=== PATIENT | female | born 1965 | race Caucasian/White ===

== ENCOUNTER → 2017-04-25 | Outpatient (CLI) | payer OTHER ==
--- NOTE | 2017-04-25 16:14 | US ---
EXAMINATION TYPE: US abdomen limited DATE OF EXAM: 04/25/2017 COMPARISON: US CLINICAL HISTORY: R94.5 abnormal liver function study. Elevated LFT's EXAM MEASUREMENTS: Liver Length: 22.8 cm Gallbladder Wall: 0.2 cm CBD: 0.4 cm Right Kidney: 11.3 x 5.3 x 5.3 cm Pancreas: Tail obscured by overlying bowel gas, duct visible= 3mm Liver: Enlarged, heterogeneous, difficult to penetrate Gallbladder: Possible small amount of sludge, otherwise appeared wnl Evidence for sonographic Merino's sign: No CBD: wnl Right Kidney: wnl IMPRESSION: 1. Exam limited due to bowel gas. 2. Moderate fatty infiltration of the liver. 3. Minimal sludge within the gallbladder
== END | disposition home or self-care (01) ==
LOC: RADUSWWP 08:00
PROVIDERS: ATTEND Family Medicine
DX: K76.0 Fatty (change of) liver, not elsewhere classified (principal); K82.8 Other specified diseases of gallbladder
CPT/HCPCS: 76705

== ENCOUNTER 2017-11-15 08:17 | Day surgery (SDC) | payer OTHER ==
[2017-10-04 12:17] VITALS: BMI 36.2
--- NOTE | 2017-11-15 05:38 | P.GSHP ---
History of Present Illness H&P Date: 11/15/17 CHIEF COMPLAINT: Cholecystitis HISTORY OF PRESENT ILLNESS: The patient is a 52-year-old female who presents with history of epigastric including right upper quadrant abdominal pain. She underwent diagnostic studies for her gallbladder. Separately her clinical picture was consistent with cholecystitis. Now she presents for surgical intervention. PAST MEDICAL HISTORY: Please see list PAST SURGICAL HISTORY: Please see list MEDICATIONS: Please see list ALLERGIES: See list. SOCIAL HISTORY: No recent tobacco use FAMILY HISTORY: Pertinent for gallbladder disease REVIEW OF ORGAN SYSTEMS: CONSTITUTIONAL: No reports of fevers or chills. HEENT: Denies any troubles with the vision or hearing. PHYSICAL EXAM: VITAL SIGNS: Afebrile vital signs stable GENERAL: Well-developed pleasant in no acute distress. HEENT: No scleral icterus. Extraocular movements grossly intact. Moist buccal mucosa. NECK: Supple without lymphadenopathy. CHEST: Unlabored respirations. Equal bilateral excursions. CARDIOVASCULAR: Regular rate regular rhythm rhythm. Distal 2+ pulses. ABDOMEN: Soft, nondistended. Tender along the epigastrium and right upper quadrant. MUSCULOSKELETAL: No clubbing, cyanosis, or edema. NEURO: Cranial nerves II to XII within normal limits. No focal or lateralizing signs. PSYCH: Alert and oriented to person, place and time. ASSESSMENT: 1. Epigastric and right upper quadrant abdominal pain 2. Chronic cholecystitis PLAN: 1. Will need a robotic cholecystectomy possible open. Benefits and risks were described. 2. Heparin for DVT prophylaxis 5000 units. 3. Antibiotic prophylaxis. Past Medical History Past Medical History: Diabetes Mellitus Additional Past Medical History / Comment(s): GALLBLADDER DISORDERS History of Any Multi-Drug Resistant Organisms: None Reported Past Surgical History: Hysterectomy Additional Past Surgical History / Comment(s): COLONOSCOPY. BILAT BREAST BIOPSIES-BENIGN Past Anesthesia/Blood Transfusion Reactions: Previous Problems w/ Anesthesia Additional Past Anesthesia/Blood Transfusion Reaction / Comment(s): WOKE UP DURING COLONOSCOPY Smoking Status: Current every day smoker - Past Family History Mother Family Medical History: No Reported History Medications and Allergies Home Medications Medication Instructions Recorded Confirmed Type Albuterol Inhaler [Ventolin Hfa 1 - 2 puff INHALATION Q6HR 10/04/17 11/12/17 History Inhaler] Ascorbic Acid [Vitamin C] 500 mg PO BID 10/04/17 11/12/17 History Aspirin EC [Ecotrin Low Dose] 81 mg PO HS 10/04/17 11/12/17 History Cetirizine HCl [Zyrtec] 5 mg PO DAILY 10/04/17 11/12/17 History Cyanocobalamin (Vitamin B-12) 1,000 mcg PO DAILY 10/04/17 11/12/17 History [Vitamin B-12] Furosemide [Lasix] 10 mg PO DAILY 10/04/17 11/12/17 History [place]-3 Fatty Acids/Fish Oil [Fish 1 each PO DAILY 10/04/17 11/12/17 History Oil 1,000 mg Softgel] metFORMIN HCL [metFORMIN HCL ER] 1,000 mg PO BID 10/04/17 11/12/17 History sitaGLIPtin [Januvia] 50 mg PO DAILY 10/04/17 11/12/17 History Allergies Allergy/AdvReac Type Severity Reaction Status Date / Time amoxicillin [From Augmentin] AdvReac SEVERE Verified 11/12/17 15:59 SORE THROAT clavulanic acid AdvReac SEVERE Verified 11/12/17 15:59 [From Augmentin] SORE THROAT
[~2017-11-15 08:17] MED LIST: ACETAMINOPHEN IV (For NPO) 1,000 MG in EMPTY BAG 1 BAG IVPB ONE; DEXAMETHASONE SOD PHOSPHATE 10 MG/ML 1 ML VIAL IV ONE; HEPARIN SODIUM,PORCINE 5,000 UNIT/ML 1 ML VIAL SQ ONE; INDOCYANINE GREEN 25 MG VIAL IV STA; LACTATED RINGERS 1,000 ML IV SCH; LIDOCAINE 1% 20 ML VIAL (10MG/ML) FOR IV START INTRADERMA PRN; MIDAZOLAM 2 MG/2 ML VIAL IV PRN; MORPHINE SULFATE 2 MG/ML SYRINGE IV PRN; ONDANSETRON 4 MG/2 ML VIAL IVP ONE; SCOPOLAMINE 1.5MG/72HR PATCH TRANSDERM ONE; ceFAZolin IN SWFI 2 GM/20 ML SYRINGE IVP ONE
[2017-11-15 09:06] LABS: Glucose,Whole Blood 295 mg/dL (75-99)
--- NOTE | 2017-11-15 09:29 | P.OP ---
Date of Procedure: 11/15/17 Description of Procedure: SURGEON: CECILIA MONTGOMERY MD CHIEF ENGINEER RESEARCH: ADELAIDE [facility]U PREOPERATIVE DIAGNOSES: 1. Chronic cholecystitis. 2. Symptomatic gallstone 3. BMI 36.3 4. Diabetes type 2 5. Asthma POSTOPERATIVE DIAGNOSES: 1. Chronic cholecystitis. 2. Symptomatic gallstone 3. BMI 36.3 4. Diabetes type 2 5. Asthma OPERATION: 1. Robotic-assisted da Lionel Xi laparoscopic cholecystectomy, multiport with FIREFLY ESTIMATED BLOOD LOSS: 5 mL SPECIMENS REMOVED: Gallbladder COMPLICATIONS: None. OPERATIVE FINDINGS: 1. Symptomatic gallstone INDICATIONS: The patient is a 52-year-old female who presents with chronic cholelcystitis. Surgical intervention with a laparoscopic cholecystectomy was described at length including injury to the biliary tree, bleeding, infection, need for further surgery. Informed consent was obtained. Robotic assisted laparoscopic approach was described. Benefits and risks of the procedure including but not limited to bleeding, infection, injury to the biliary tree was described. Informed consent was obtained. DESCRIPTION OF PROCEDURE: Patient was brought to the operating room, placed in supine position. After general induction, the abdomen had been prepped and draped in standard sterile fashion. The robotic da Lionel XI system was primed. After a timeout protocol was performed, the patient had been prepped and draped in standard sterile fashion. The patient was injected with indocyanine green. The robot was docked along the left lateral abdomen. The patient was repositioned in reverse Trendelenburg position. Please note prior to docking of the robot; however, a 5 mm 0 degrees laparoscopic trocar entry was performed along the left upper quadrant. Next, two 8 mm robotic ports were placed along the right upper abdomen. The camera 8-mm port was maintained along the epigastrium. Another 8 mm port was placed along the left upper abdominal wall after exchanging the 5 mm port. Please note that the ports were placed at least 10 to 15 cm away from the target anatomy of the gallbladder. Using a grasper for arm 3, a grasper for arm 2, including hook cautery for arm 1 , the robotic system was docked and primed as described. Instruments were interchanged by the medical staff assistant including hook cautery, Bovie cautery scissors and clip appliers. I had sat at the console. Adhesions were identified along the infundibulum of the gallbladder and addressed using hook cautery. The gallbladder fundus was retracted over the dome of the liver. Initial attention was brought to the infundibulum which was gently retracted in the inferior lateral approach. Using a grasper, the cystic duct including the cystic artery was carefully skeletonized. FIREFLY was used to identify the cystic artery and cystic structures. Using a clip professional nursing tutor 2 large PLASTIC clips were placed proximally, and 1 clip was placed distally along the cystic duct and then cauterized with the cautery. Again care was taken to avoid any injury to the biliary tree as the common bile duct was clearly visualized during this portion of dissection. Next, the cystic artery was cauterized after 2 large PLASTIC clips were placed. Electro-Bovie cautery was used to remove the gallbladder from the hepatic fossa. Hemostasis was checked and found to be adequate. The robot was undocked. I re-scrubbed into the case. Using a 10 mm Endo Catch bag via the left upper quadrant incision, the specimen was removed from the abdominal cavity. All pneumoperitoneum instruments were evacuated from the abdominal cavity. The incisions were reapproximated using 4-0 Monocryl in an interrupted subcuticular fashion. Fascial defect was less than 8 mm in size. Please note along the trocar sites, local anesthetic was placed as a field block prior to insertion of all instruments. Dermabond was applied to the skin. At the end of the procedure needle, sponge, and instrument count had been verified correct by the surgical appliance fitter. The patient was transferred to postanesthesia care unit in stable condition. Intraoperative films were shared with the patient's family who were very pleased with the level of care. Console time 20 minutes Plan - Discharge Summary New Discharge Prescriptions: No Action Albuterol Inhaler [Ventolin Hfa Inhaler] 1 - 2 puff INHALATION Q6HR Ascorbic Acid [Vitamin C] 500 mg PO BID sitaGLIPtin [Januvia] 50 mg PO DAILY metFORMIN HCL [metFORMIN HCL ER] 1,000 mg PO BID Furosemide [Lasix] 10 mg PO DAILY [place]-3 Fatty Acids/Fish Oil [Fish Oil 1,000 mg Softgel] 1 each PO DAILY Cyanocobalamin (Vitamin B-12) [Vitamin B-12] 1,000 mcg PO DAILY Cetirizine HCl [Zyrtec] 5 mg PO DAILY Aspirin EC [Ecotrin Low Dose] 81 mg PO HS Discharge Medication List Albuterol Inhaler [Ventolin Hfa Inhaler] 1 - 2 puff INHALATION Q6HR 10/04/17 [ History] Ascorbic Acid [Vitamin C] 500 mg PO BID 10/04/17 [History] Aspirin EC [Ecotrin Low Dose] 81 mg PO HS 10/04/17 [History] Cetirizine HCl [Zyrtec] 5 mg PO DAILY 10/04/17 [History] Cyanocobalamin (Vitamin B-12) [Vitamin B-12] 1,000 mcg PO DAILY 10/04/17 [ History] Furosemide [Lasix] 10 mg PO DAILY 10/04/17 [History] [place]-3 Fatty Acids/Fish Oil [Fish Oil 1,000 mg Softgel] 1 each PO DAILY [History] metFORMIN HCL [metFORMIN HCL ER] 1,000 mg PO BID 10/04/17 [History] sitaGLIPtin [Januvia] 50 mg PO DAILY 10/04/17 [History]
[2017-11-15 09:30] LABS: Basophils # (A) 0.1 k/uL (0-0.2); Basophils % (A) 1 %; Eosinophils # (A) 0.5 k/uL (0-0.7); Eosinophils % (A) 5 %; HCT 42.5 % (34.0-46.0); HGB 15.2 gm/dL (11.4-16.0); Lymphocytes # (A) 2.8 k/uL (1.0-4.8); Lymphocytes % (A) 28 %; MCH 30.4 pg (25.0-35.0); MCHC 35.7 g/dL (31.0-37.0); MCV 85.1 fL (80.0-100.0); Mean Platelet Volume 7.6; Monocytes # (A) 0.5 k/uL (0-1.0); Monocytes % (A) 6 %; Neutrophils # (A) 5.7 k/uL (1.3-7.7); Neutrophils % (A) 58 %; Platelet Count 262 k/uL (150-450); RBC 4.99 m/uL (3.80-5.40); RDW 13.3 % (11.5-15.5); WBC 9.9 k/uL (3.8-10.6)
[2017-11-15 09:37] LABS: ALT 77 U/L (9-52); AST 43 U/L (14-36); Albumin 4.2 g/dL (3.5-5.0); Alkaline Phosphatase 74 U/L (38-126); Anion Gap 13 mmol/L; Blood Urea Nitrogen 16 mg/dL (7-17); Calcium 9.3 mg/dL (8.4-10.2); Carbon Dioxide 25 mmol/L (22-30); Chloride 103 mmol/L (98-107); Glucose 293 mg/dL (74-99); Potassium 4.5 mmol/L (3.5-5.1); Sodium 141 mmol/L (137-145); Total Bilirubin 0.5 mg/dL (0.2-1.3); Total Protein 6.7 g/dL (6.3-8.2)
[2017-11-15] MEDS ORDERED: INSULIN ASPART 100 UNIT/ML 1 ML 10 ML VIAL SQ ONE ×2 (09:40→13:03)
[2017-11-15 09:50] VITALS: RESP 16
[2017-11-15] MEDS ORDERED: ROCURONIUM BROMIDE 10 MG/ML 10 ML VIAL IV ONE (10:02)
[2017-11-15] MEDS ORDERED: fentaNYL (PF) 50 MCG/ML 2 ML AMP ONE (10:02)
[2017-11-15] MEDS ORDERED: SUCCINYLCHOLINE CHLORIDE VIAL 200 MG/10 ML VIAL IV ONE (10:02)
[2017-11-15] MEDS ORDERED: GLYCOPYRROLATE 0.2 MG/ML 2 ML VIAL ONE (10:02)
[2017-11-15] MEDS ORDERED: PROPOFOL 10 MG/ML 20 ML VIAL IV ONE (10:02)
[2017-11-15] MEDS ORDERED: MIDAZOLAM 2 MG/2 ML VIAL ONE (10:02)
[2017-11-15] MEDS ORDERED: NEOSTIGMINE 1 MG/ML 10 ML VIAL ONE (10:02)
[2017-11-15] MEDS ORDERED: LIDOCAINE 1% INJ 10MG/ML (20 ML MDV) ONE (10:02)
[2017-11-15] MEDS ORDERED: BUPIVACAINE (PF) 0.25% 30 ML VIAL SQ ONE (10:30)
[2017-11-15 11:14] VITALS: TEMP 97.2
[2017-11-15 11:21] LABS: Glucose,Whole Blood 270 mg/dL (75-99)
[2017-11-15] MEDS ORDERED: fentaNYL (PF) 50 MCG/ML 2 ML AMP IVP ONE ×2 (11:59→12:20)
[2017-11-15] MEDS ORDERED: LACTATED RINGERS 1,000 ML IV ONE (12:00)
[2017-11-15] MEDS ORDERED: HYDROcodone/APAP 5-325MG 1 EACH TAB PO ONE (12:46)
[2017-11-15 12:58] LABS: Glucose,Whole Blood 277 mg/dL (75-99)
[2017-11-15 13:12] VITALS: BP 131/77; PULSE 73
== END 2017-11-15 13:40 | disposition home or self-care (01) ==
LOC: OR 08:17
PROVIDERS: ATTEND Surgery Plastic and Reconstructive Surgery
DX: K80.10 Calculus of gallbladder with chronic cholecystitis without obstruction (principal); E11.9 Type 2 diabetes mellitus without complications; J45.909 Unspecified asthma, uncomplicated; K21.9 Gastro-esophageal reflux disease without esophagitis; F17.210 Nicotine dependence, cigarettes, uncomplicated; Z88.0 Allergy status to penicillin; Z79.82 Long term (current) use of aspirin; Z79.84 Long term (current) use of oral hypoglycemic drugs; Z79.899 Other long term (current) drug therapy; Z68.36 Body mass index [BMI] 36.0-36.9, adult; Z90.710 Acquired absence of both cervix and uterus
CPT/HCPCS: 47562; 88304; 80053; 85025; J2250; J0330; J1644; J1100; J2710; J2405; J2001; J3010; J0131; J2704; J0690

== ENCOUNTER → 2018-10-27 | Outpatient (CLI) | payer OTHER ==
--- NOTE | 2018-10-27 16:15 | US ---
EXAMINATION TYPE: US liver DATE OF EXAM: 10/27/2018 COMPARISON: US 04/25/2017 CLINICAL HISTORY: R74.8 abnormal levels enzymes. EXAM MEASUREMENTS: Liver Length: 19.4 cm Gallbladder Wall: Surgically absent cm CBD: 0.3 cm Right Kidney: 11.3 x 5.0 x 4.6 cm Pancreas: Tail obscured by overlying bowel gas, duct visualized measuring 0.3 cm Liver: Enlarged. Increased attenuation, decreased visualization of vessels suggestive of fatty infil trate. Portal vein appears enlarged measuring 1.4 cm Gallbladder: Surgically absent Evidence for sonographic Merino's sign: No CBD: wnl as visualized Right Kidney: No hydronephrosis or masses seen IMPRESSION: 1. Hepatomegaly. 2. Pancreas duct is somewhat prominent within the midportion. Consider ERCP for additional evaluation .
== END | disposition home or self-care (01) ==
LOC: RADUSWWP 07:52
PROVIDERS: ATTEND Family Medicine
DX: R16.0 Hepatomegaly, not elsewhere classified (principal); R74.8 Abnormal levels of other serum enzymes
CPT/HCPCS: 76705

== ENCOUNTER → 2018-11-21 | Outpatient (CLI) | payer OTHER ==
--- NOTE | 2018-11-21 14:29 | XR ---
EXAMINATION TYPE: XR chest 2V DATE OF EXAM: 11/21/2018 COMPARISON: 05/28/2009 TECHNIQUE: PA and lateral views submitted. HISTORY: Cough FINDINGS: The lungs are clear and there is no pneumothorax, pleural effusion, or focal pneumonia. Hypertrophi c and degenerative changes spine. Pain. No overt failure. Mild hyperinflation. IMPRESSION: 1. No acute process.
== END ==
LOC: RADXRMAIN 14:10
PROVIDERS: ATTEND Family Medicine
DX: R05 Cough (principal)
CPT/HCPCS: 71046

== ENCOUNTER → 2019-05-04 | Outpatient (CLI) | payer OTHER ==
--- NOTE | 2019-05-05 08:40 | XR ---
EXAMINATION TYPE: XR shoulder complete RT DATE OF EXAM: 05/04/2019 COMPARISON: NONE HISTORY: Pain TECHNIQUE: Three views are submitted. FINDINGS: The osseous structures are intact. There is no acute fracture or dislocation. Hypertrophic arthropat hy of the AC joint. IMPRESSION: 1. AC joint arthropathy correlate for rotator cuff disease
== END | disposition home or self-care (01) ==
LOC: RADXRMAIN 16:47
PROVIDERS: ATTEND Family Medicine
DX: M12.811 Other specific arthropathies, not elsewhere classified, right shoulder (principal)

== ENCOUNTER → 2019-06-08 | Outpatient (CLI) | payer OTHER ==
--- NOTE | 2019-06-09 03:58 | MR ---
EXAMINATION TYPE: MR shoulder RT wo con DATE OF EXAM: 06/08/2019 COMPARISON: HISTORY: Rt shoulder pain/injured in fall 05-01-19 TECHNIQUE: Multiplanar, multisequence imaging of the right shoulder is performed without contrast. FINDINGS: There is shoulder joint effusion. There is thickening and increased signal in the supraspinatus tendo n. There is no retraction. There is mild spurring at the AC joint. The biceps tendon is intact. There is some thinning of the subscapularis tendon at its attachment on the humeral head. The glenoid labr a appear intact. There is fluid in the subcutaneous deltoid bursa. I see no fracture line. IMPRESSION: There is shoulder joint effusion. There is rotator cuff tear with full-thickness tear of the supraspi natus tendon but no retraction. There is also at least partial tear of the subscapularis tendon. No f racture seen.
== END | disposition home or self-care (01) ==
LOC: RADMRIMAIN 15:37
PROVIDERS: ATTEND Orthopaedic Surgery
DX: S46.011D Strain of muscle(s) and tendon(s) of the rotator cuff of right shoulder, subsequent encounter (principal); S46.811D Strain of other muscles, fascia and tendons at shoulder and upper arm level, right arm, subsequent encounter; E11.9 Type 2 diabetes mellitus without complications; E78.5 Hyperlipidemia, unspecified; E03.9 Hypothyroidism, unspecified; F17.210 Nicotine dependence, cigarettes, uncomplicated

== ENCOUNTER → 2019-12-07 | Outpatient (CLI) | payer OTHER ==
--- NOTE | 2019-12-07 15:48 | P.STRESS ---
- Stress Test Note Stress Test Results/Findings: Exam Performed: EH stress test Exam Date: 12/07/19 Reason for Exam: CP Height: 5 ft 2 in Weight: 100 kg Protocol: MAK Stage: 2 Duration of Exercise: 6:00 Resting Heart Rate: 90 Resting Blood Pressure: 123/75 Maximum Achieved Heart Rate: 145 Maximum Achieved Blood Pressure: 126/62 85% PMHR: 139 100% PMHR: 164 METS: 7.1 Technologist Comment: Stress Test Results/Findings: Baseline heart rate 90 beats a minute, Baseline blood pressure 123/75 mmHg The ECG showed sinus rhythm with complete right bundle branch block pattern Patient exercised on a Mak protocol for 6 minutes achieving a peak heart rate of 145 beats a minute There was no ECG evidence for ischemia no arrhythmias noted Impression Average exercise capacity No ECG evidence for ischemia
--- NOTE | 2019-12-07 16:51 | ECHOF ---
Referral Reason:I10 hypertention MEASUREMENTS -------- HEIGHT: 152.4 cm WEIGHT: 99.8 kg BP: IVSd: 1.1 cm (0.6 - 1.1) LVIDd: 3.5 cm (3.9 - 5.3) LVPWd: 1.4 cm (0.6 - 1.1) IVSs: 1.9 cm LVIDs: 2.7 cm LVPWs: 1.5 cm RVIDd: 3.1 cm (< 3.3) Ao Diam: 2.7 cm (2.0 - 3.7) LA Diam: 3.0 cm (2.7 - 3.8) AV Cusp: 1.8 cm (1.5 - 2.6) EPSS: 0.5 cm MV E Nabor: 0.92 m/s MV DecT: 177 ms MV A Nabor: 0.73 m/s MV E/A Ratio: 1.27 RAP: 5.00 mmHg RVSP: 24.94 mmHg MV EF SLOPE: 75.23 mm/s (70 - 150) MV EXCURSION: 9.72 mm (> 18.000) FINDINGS -------- Sinus rhythm. This was a technically adequate study. The left ventricular size is normal. There is mild concentric left ventricular hypertrophy. Overa ll left ventricular systolic function is normal with, an EF between 55 - 60 %. The right ventricle is normal in size. The left atrial size is normal. The right atrial size is normal. Interatrial and interventricular septum intact. The aortic valve is trileaflet and appears structurally normal. The mitral valve is normal. There is trace mitral regurgitation. The tricuspid valve appears structurally normal. Trace tricuspid regurgitation present. Right yelena tricular systolic pressure is normal at < 35 mmHg. There is no pulmonic regurgitation present. The aortic root size is normal. Normal inferior vena cava with normal inspiratory collapse consistent with estimated right atrial pre ssure of 5 mmHg. There is no pericardial effusion. CONCLUSIONS -------- 1. Sinus rhythm. 2. This was a technically adequate study. 3. The left ventricular size is normal. 4. There is mild concentric left ventricular hypertrophy. 5. Overall left ventricular systolic function is normal with, an EF between 55 - 60 %. 6. The right ventricle is normal in size. 7. The left atrial size is normal. 8. The right atrial size is normal. 9. Interatrial and interventricular septum intact. 10. The aortic valve is trileaflet and appears structurally normal. 11. The mitral valve is normal. 12. There is trace mitral regurgitation. 13. The tricuspid valve appears structurally normal. 14. Trace tricuspid regurgitation present. 15. Right ventricular systolic pressure is normal at < 35 mmHg. 16. There is no pulmonic regurgitation present. 17. The aortic root size is normal. 18. Normal inferior vena cava with normal inspiratory collapse consistent with estimated right atrial pressure of 5 mmHg. 19. There is no pericardial effusion. FURNACE DOOR TENDER: Lalitha Cavazos RDCS
--- NOTE | 2019-12-09 16:02 | EST ---
Stress Test Results/Findings: Exam Performed: stress test Exam Date: 12/07/19 Reason for Exam: CP Height: 5 ft 2 in Weight: 100 kg Protocol: MAK Stage: 2 Duration of Exercise: 6:00 Resting Heart Rate: 90 Resting Blood Pressure: 123/75 Maximum Achieved Heart Rate: 145 Maximum Achieved Blood Pressure: 126/62 85% PMHR: 139 100% PMHR: 164 METS: 7.1 Technologist Comment: Stress Test Results/Findings: Baseline heart rate 90 beats a minute, Baseline blood pressure 123/75 mmHg The ECG showed sinus rhythm with complete right bundle branch block pattern Patient exercised on a Mak protocol for 6 minutes achieving a peak heart rate of 145 beats a minute There was no ECG evidence for ischemia no arrhythmias noted Impression Average exercise capacity No ECG evidence for ischemia MTDD
== END | disposition home or self-care (01) ==
LOC: RADNMMAIN 10:54
PROVIDERS: ATTEND Family Medicine
DX: R07.9 Chest pain, unspecified (principal); I08.1 Rheumatic disorders of both mitral and tricuspid valves
CPT/HCPCS: 93017; 93306

== ENCOUNTER → 2020-07-28 | Outpatient (CLI) | payer OTHER | END | disposition home or self-care (01) | LOC: LABWHC1 13:47 | PROVIDERS: ATTEND Nurse Practitioner | DX: Z20.822 Contact with and (suspected) exposure to COVID-19 (principal) | CPT/HCPCS: 87502; U0003; C9803; U0005 ==

== ENCOUNTER → 2020-09-19 | Outpatient (CLI) | payer OTHER ==
--- NOTE | 2020-09-20 00:06 | MR ---
EXAMINATION TYPE: MR shoulder LT wo con DATE OF EXAM: 09/19/2020 COMPARISON: None HISTORY: Left shoulder pain for 2 months. Multiplanar multiecho imaging of the left shoulder was performed without contrast. Subscapularis tendon is intact. Biceps tendon is intact. There is small shoulder joint effusion. Ther e is minimal fluid around the biceps tendon. The glenoid sen appear intact. There is 6 mm degenerat luis antonio cyst in the greater tuberosity. There are other smaller degenerative cysts in the greater tuberos ity. There is thickening and increased signal in the supraspinatus tendon over the humeral head and at the greater tuberosity. There is no retraction. There is full-thickness vertical defect through the tend on. There is mild spurring at the AC joint and minimal impingement on the supraspinatus tendon. There is no evidence of a fracture. IMPRESSION: There are multiple areas of increased signal in the supraspinatus tendon with mild thickening consist ent with tendinitis. There is also full-thickness tear. There is a mild shoulder joint effusion. Small degenerative cysts in the greater tuberosity of the humerus. No fracture.
== END ==
LOC: RADMRIMAIN 19:17
PROVIDERS: ATTEND Orthopaedic Surgery
DX: M75.112 Incomplete rotator cuff tear or rupture of left shoulder, not specified as traumatic (principal); M25.412 Effusion, left shoulder; M85.612 Other cyst of bone, left shoulder

== ENCOUNTER → 2020-10-03 | Outpatient (CLI) | payer OTHER ==
--- NOTE | 2020-10-03 15:23 | XR ---
Cervical spine HISTORY: Neck pain 5 views of the cervical spine There is loss of disc height at C5-6 with associated spondylosis. Minimal anterolisthesis grade 1 C4- 5. Prevertebral soft tissues are normal. Cervical vertebral bodies show preserved height and bone min eralization. There is some facet arthropathy change. C7-T1 is not well seen. Oblique images show some foraminal encroachment at C5-6 on the right. IMPRESSION: Degenerative disc disease, facet arthropathy.
== END | disposition home or self-care (01) ==
LOC: RADXRMAIN 14:53
PROVIDERS: ATTEND Nurse Practitioner
DX: M50.30 Other cervical disc degeneration, unspecified cervical region (principal); M47.22 Other spondylosis with radiculopathy, cervical region
CPT/HCPCS: 72050

== ENCOUNTER → 2020-11-02 | Outpatient (CLI) | payer OTHER ==
--- NOTE | 2020-11-03 05:48 | MR ---
EXAMINATION TYPE: MR cervical spine wo con DATE OF EXAM: 11/02/2020 COMPARISON: None HISTORY: Pain in neck down to both arms and fingers Multiplanar multiecho imaging of the cervical spine was performed without contrast. Cervical vertebra have normal alignment. There is posterior disc bulging and herniation at C4-5 C5-6. There is developmentally large spinal canal. The narrowest point of the spinal canal is 9 mm at the C5-6 level. There is no spinal stenosis. Cervical spinal cord has normal signal pattern. There is no edema. Brainstem is intact. There is no compression fracture. There is no evidence of cervical parasp inal mass. Skull base appears intact. IMPRESSION: Mild posterior disc bulging and herniation at C4-5 and C5-6 without impingement on the neural element s. No fracture. Mild degenerative disc space narrowing.
== END | disposition home or self-care (01) ==
LOC: RADMRIMAIN 17:18
PROVIDERS: ATTEND Nurse Practitioner
DX: M50.122 Cervical disc disorder at C5-C6 level with radiculopathy (principal)
CPT/HCPCS: 72141

== ENCOUNTER → 2021-02-03 | Outpatient (CLI) | payer OTHER ==
[2021-02-03 14:16] VITALS: BP 135/77; PULSE 90; RESP 18; TEMP 98.1
--- NOTE | 2021-02-03 14:42 | P.GSHP ---
History of Present Illness H&P Date: 02/03/21 Chief Complaint: Right breast lump Mary is a 56-year-old white female who presents for consultation with Dr. Sandip Lorenzo regarding a right breast lump. She underwent a bilateral screening mammogram on . This did not show any suspicious lesions of concern. An ultrasound of the palpable abnormality was recommended. She noted a lump in her right breast in the inner aspect for about 6 months. She can't feel it at this time, she did not have an ultrasound performed yet. She is not complaining of any pain in her breast. She has not had any recent nipple discharge. She is not complaining of any recent trauma or infection in the breast. She did notice an area of erythema in the more lateral aspect of the breast about two days ago. She's had bilateral percutaneous breast biopsies. These were both benign. They were done many years ago. Note from Dr. Sandip Lorenzo's office reviewed August 2020. caffeine: 2-3 cups of coffee/day nicotine: 1PPD/ for 40 years chocolate: occasional Family History: maternal grandmother: colon cancer Hormonal History: menarche: 11 [id number] breast fed: no, age at first : 20 menopause: hysterectomy ? if ovaries removed, at 41; done for bleeding BCP: 10 years hormones: < 1 year Surgical history: hysterectomy question of ovaries removed gallbladder Medical History: bilateral shoulder pain Social History: nicotine: 1/PPD for 40 years alcohol: rare drugs: none - Constitutional Constitutional: Denies chills, Denies fever - EENT Eyes: denies blurred vision, denies pain Ears: bilateral: tinnitus Ears, nose, mouth and throat: Denies headache, Denies sore throat - Breasts Breasts: bilateral: as per HPI - Cardiovascular Cardiovascular: Denies chest pain, Denies shortness of breath - Respiratory Comment: smoker - Gastrointestinal Gastrointestinal: Reports constipation, Denies abdominal pain, Denies diarrhea, Denies nausea, Denies vomiting - Genitourinary (Female) Genitourinary: Denies dysuria, Denies hematuria - Menstruation Menstruation: Reports post hysterectomy - Musculoskeletal Comment: arthritis Musculoskeletal: Reports as per HPI - Integumentary Integumentary: Reports as per HPI - Neurological Neurological: Reports weakness, Denies numbness - Psychiatric Psychiatric: Reports anxiety, Reports depression - Endocrine Comment: diabetic - Hematologic/Lymphatic Comment: baby aspirin daily - Allergic/Immunologic Allergic/Immunologic: Reports as per HPI Past Medical History Past Medical History: Diabetes Mellitus Additional Past Medical History / Comment(s): GALLBLADDER DISORDERS History of Any Multi-Drug Resistant Organisms: None Reported Past Surgical History: Hysterectomy Additional Past Surgical History / Comment(s): COLONOSCOPY. BILAT BREAST BIOPSIES-BENIGN Past Anesthesia/Blood Transfusion Reactions: Previous Problems w/ Anesthesia Additional Past Anesthesia/Blood Transfusion Reaction / Comment(s): WOKE UP DURING COLONOSCOPY Past Psychological History: Anxiety Additional Psychological History / Comment(s): LIVES WITH ALCOHOLIC-GETS ANXIETY ATTACKS AT TIMES Smoking Status: Current every day smoker Past Alcohol Use History: Rare Additional Past Alcohol Use History / Comment(s): SMOKES 1 PPD SINCE AGE 15 Past Drug Use History: None Reported - Past Family History Mother Family Medical History: No Reported History Medications and Allergies Home Medications Medication Instructions Recorded Confirmed Type Albuterol Inhaler (Mhu) [Ventolin 1 - 2 puff INHALATION Q6HR 10/04/17 02/03/21 History Hfa Inhaler] Ascorbic Acid [Vitamin C] 500 mg PO BID 10/04/17 02/03/21 History Aspirin EC [Ecotrin Low Dose] 81 mg PO HS 10/04/17 02/03/21 History Cyanocobalamin (Vitamin B-12) 1,000 mcg PO DAILY 10/04/17 02/03/21 History [Vitamin B-12] Furosemide [Lasix] 10 mg PO DAILY 10/04/17 02/03/21 History [place]-3 Fatty Acids/Fish Oil [Fish 1 each PO DAILY 10/04/17 02/03/21 History Oil 1,000 mg Softgel] Glimepiride [Amaryl] 1 mg PO DAILY 02/03/21 02/03/21 History Levothyroxine Sodium [Synthroid] 75 mcg PO DAILY 02/03/21 02/03/21 History Multivit with Calcium,Iron,Min 1 each PO DAILY 02/03/21 02/03/21 History [Women's Multivitamin] Zinc 50 mg PO DAILY 02/03/21 02/03/21 History sitaGLIPtin PHOS/metFORMIN HCL 1 each PO BID 02/03/21 02/03/21 History [Janumet 50-1,000 mg Tablet] Allergies Allergy/AdvReac Type Severity Reaction Status Date / Time amoxicillin [From Augmentin] AdvReac SEVERE Verified 02/03/21 14:05 SORE THROAT clavulanic acid AdvReac SEVERE Verified 02/03/21 14:05 [From Augmentin] SORE THROAT Surgical - Exam Vital Signs Temp Pulse Resp BP Pulse Ox 98.1 F 90 18 135/77 96 02/03/21 14:11 02/03/21 14:11 02/03/21 14:11 02/03/21 14:11 02/03/21 14:11 BMI 36.9 - General no distress - Eyes normal ocular movement - ENT no hearing loss, no congestion - Neck no masses, trachea midline - Respiratory normal respiratory effort, clear to auscultation - Cardiovascular Heart Sounds: normal: S1, S2 - Abdomen Abdomen: soft, non tender, no guarding, no rigid, no rebound - Integumentary normal turgor - Neurologic no disoriented, no combative - Musculoskeletal normal gait, normal posture - Psychiatric oriented to time, oriented to person, oriented to place, speech is normal, memory intact Breast Exam: BRA: Unsure of size Inspection: Small erythematous lesion upper right breast, grade 3 ptosis bilaterally Palpation: Right breast: Multi-positional exam fibrocystic changes, no discrete dominant masses or nodules of concern lobulated breast tissue in the medial inner aspect Right axilla: No adenopathy of concern Left breast: Multiple positional exam fibrocystic changes, no dominant masses or nodules of concern Left axilla: No adenopathy of concern Results Mammogram results reviewed Assessment and Plan Assessment: Impression/plan: 1. Bilateral fibrocystic breast changes 2. Bilateral mammogram no discrete lesions of concern mammogram performed on 12-22-20 3. Probable change right breast as per patient I was unable to feel anything discrete on today's examination 4. Nicotine dependence 5. Caffeine approximately 2-3 cups per day 6. Diabetes 7. Anxiety 8. Borderline hypertension Plan: 1. Ultrasound of area of concern the patient palpated 2. Encouraged to stop smoking and caffeine intake 3. Erythematous skin change right breast to be followed conservatively Cc: Dr. Sandip Lorenzo
== END ==
LOC: WWCWWP 13:55
PROVIDERS: ATTEND Surgery
DX: N60.11 Diffuse cystic mastopathy of right breast (principal); N60.12 Diffuse cystic mastopathy of left breast; E11.9 Type 2 diabetes mellitus without complications; F17.210 Nicotine dependence, cigarettes, uncomplicated; F15.90 Other stimulant use, unspecified, uncomplicated; F41.9 Anxiety disorder, unspecified; Z79.84 Long term (current) use of oral hypoglycemic drugs; Z88.1 Allergy status to other antibiotic agents

== ENCOUNTER → 2021-02-28 | Outpatient (CLI) | payer OTHER ==
--- NOTE | 2021-03-01 08:28 | USB ---
Reason for exam: clinical finding. History: Patient is postmenopausal. Benign US left guided mammotome of the left breast, May 23, 2007. Took estrogen for 9 months beginning at age 40. Indicated problem(s): palpable abnormality in the right breast. Physical Findings: Nurse did not find any significant physical abnormalities on exam. US Breast Limited RT Right limited breast ultrasound including focal area of concern, retroareolar and axilla demonstrates a 2.3 x 0.9 x 2.6cm hyperechoic lipoma at 2 o'clock. These results were verbally communicated with the patient and result sheet given to the patient on 02/28/21. ASSESSMENT: Probably benign, BI-RAD 3 RECOMMENDATION: Follow-up diagnostic mammogram of the right breast in 6 months. Manage patient on a clinical basis.
== END | disposition home or self-care (01) ==
LOC: RADUSWWP 14:22
PROVIDERS: ATTEND Surgery
DX: N64.89 Other specified disorders of breast (principal); Z78.0 Asymptomatic menopausal state

== ENCOUNTER → 2021-03-10 | Outpatient (CLI) | payer OTHER ==
[2021-03-10 15:05] VITALS: BP 116/80; PULSE 85; RESP 12; TEMP 98.3
--- NOTE | 2021-03-10 15:14 | P.PN ---
Subjective Progress Note Date: 03/10/21 Principal diagnosis: Results of ultrasound removed breast Mary is a 56-year-old white female who was seen in consultation for Dr. Sandip Lorenzo regarding a right breast lump. [place] [address]. This did not show any suspicious lesions of concern. An ultrasound of the palpable abnormality was recommended. She noted a lump in her right breast in the inner aspect for about 6 months, which subsequently resolved. The ultrasound was performed and [id number] which was felt to be probably benign. A 2.3 x 2.6 cm hypoechoic probable lipoma was noted at 2:00. This was a benign BIRADS 3 and follow-up diagnostic mammogram of the right breast in 6 months time was recommended. She is not complaining of any pain in her breast. She has not had any recent nipple discharge. She is not complaining of any recent trauma or infection in the breast. She's had bilateral percutaneous breast biopsies. These were both benign. They were done many years ago. The patient at this time is doing well. She is coming in for results of her ultrasound of her right breast. caffeine: 2-3 cups of coffee/day nicotine: 1PPD/ for 40 years chocolate: occasional Family History: maternal grandmother: colon cancer Hormonal History: menarche: 11 [id number] breast fed: no, age at first : 20 menopause: hysterectomy ? if ovaries removed, at 41; done for bleeding BCP: 10 years hormones: < 1 year Surgical history: hysterectomy question of ovaries removed gallbladder Medical History: bilateral shoulder pain Social History: nicotine: 1/PPD for 40 years alcohol: rare drugs: none - Constitutional Constitutional: Denies chills, Denies fever - EENT Eyes: denies blurred vision, denies pain Ears: bilateral: tinnitus Ears, nose, mouth and throat: Denies headache, Denies sore throat - Breasts Breasts: bilateral: as per HPI - Cardiovascular Cardiovascular: Denies chest pain, Denies shortness of breath - Respiratory Comment: smoker - Gastrointestinal Gastrointestinal: Reports constipation, Denies abdominal pain, Denies diarrhea, Denies nausea, Denies vomiting - Genitourinary (Female) Genitourinary: Denies dysuria, Denies hematuria - Menstruation Menstruation: Reports post hysterectomy - Musculoskeletal Comment: arthritis Musculoskeletal: Reports as per HPI - Integumentary Integumentary: Reports as per HPI - Neurological Neurological: Reports weakness, Denies numbness - Psychiatric Psychiatric: Reports anxiety, Reports depression - Endocrine Comment: diabetic - Hematologic/Lymphatic Comment: baby aspirin daily - Allergic/Immunologic Allergic/Immunologic: Reports as per HPI Local examination deferred at this time is patient was recently examined and is not complaining of any changes in her breast. Impression: 1. Probable lipoma right breast 2. Fibrocystic breast disease 3. Last bilateral mammogram 12-22-20 Plan: 1. Repeat right breast mammogram in 6 months as well as ultrasound and follow- up at that time Objective - Vital Signs Vital signs: Vital Signs Temp 98.3 F 03/10/21 14:31 Pulse 85 03/10/21 14:31 Resp 12 03/10/21 14:31 BP 116/80 03/10/21 14:31 Pulse Ox 96 03/10/21 14:31 Intake & Output 03/09/21 03/10/21 03/10/21 18:59 06:59 18:59 Weight 101.151 kg
== END ==
LOC: WWCWWP 14:07
PROVIDERS: ATTEND Surgery
DX: N60.11 Diffuse cystic mastopathy of right breast (principal); F17.210 Nicotine dependence, cigarettes, uncomplicated; Z88.1 Allergy status to other antibiotic agents

== ENCOUNTER → 2021-04-04 | Outpatient (CLI) | payer OTHER | LOC: LABWHC1 14:10 | PROVIDERS: ATTEND Family Medicine | DX: Z20.822 Contact with and (suspected) exposure to COVID-19 (principal) | CPT/HCPCS: 87502; U0003; U0005 ==

== ENCOUNTER → 2021-09-05 | Outpatient (CLI) | payer OTHER ==
--- NOTE | 2021-09-05 14:43 | MM ---
Reason for exam: additional evaluation requested from prior study. Last mammogram was performed 14 years and 4 months ago. History: Patient is postmenopausal. Benign US left guided mammotome of the left breast, May 23, 2007. Took estrogen for 9 months beginning at age 40. Physical Findings: A clinical breast exam by your physician is recommended on an annual basis and results should be correlated with mammographic findings. MG Diagnostic Mammo RT w CAD CC and MLO view(s) were taken of the right breast. Prior study comparison: December 22, 2020, mammogram. July 29, 2019, mammogram. The breast tissue is heterogeneously dense. This may lower the sensitivity of mammography. There are benign appearing round calcifications in the right breast. Previous mammotome biopsy in the right breast. There is no discrete abnormality. These results were verbally communicated with the patient and result sheet given to the patient on 09/05/21. ASSESSMENT: Benign, BI-RAD 2 RECOMMENDATION: Routine screening mammogram of both breasts in 4 months. Back on schedule.
--- NOTE | 2021-09-05 14:44 | USB ---
Reason for exam: additional evaluation requested from prior study. History: Patient is postmenopausal. Benign US left guided mammotome of the left breast, May 23, 2007. Took estrogen for 9 months beginning at age 40. US Breast Limited RT Right limited breast ultrasound including focal area of concern, retroareolar and axilla demonstrates a 1.8 x 2.5 x 0.9cm oval, hyperechoic lesion at 2 o'clock, stable from 02/28/21, suspect benign lipoma. These results were verbally communicated with the patient and result sheet given to the patient on 09/05/21. ASSESSMENT: Benign, BI-RAD 2 RECOMMENDATION: Routine screening mammogram of both breasts in 4 months. Back on schedule.
== END | disposition home or self-care (01) ==
LOC: RADMAMWWP 13:01
PROVIDERS: ATTEND Surgery
DX: R92.8 Other abnormal and inconclusive findings on diagnostic imaging of breast (principal); Z78.0 Asymptomatic menopausal state
CPT/HCPCS: 77065

== ENCOUNTER → 2021-09-08 | Outpatient (CLI) | payer OTHER ==
[2021-09-08 15:11] VITALS: BP 126/83; PULSE 91; RESP 18; TEMP 96.7
--- NOTE | 2021-09-08 15:34 | P.GSHP ---
History of Present Illness H&P Date: 09/08/21 Chief Complaint: raidographic abnormality of the right breast Mary is a 56-year-old white female who presents for consultation for Dr. Sandip Lorenzo on 02-03-21 regarding a right breast lump. She underwent a bilateral screening mammogram on . This did not show any suspicious lesions of concern. An ultrasound of the palpable abnormality was recommended. She noted a lump in her right breast in the inner aspect for about 6 months. She can't feel it at this time, she did not have an ultrasound performed yet. She is not complaining of any pain in her breast. She has not had any recent nipple discharge. She is not complaining of any recent trauma or infection in the breast. She did notice an area of erythema in the more lateral aspect of the breast about two days ago. She's had bilateral percutaneous breast biopsies. These were both benign. [place] [id number] had an ultrasound of her right breast which revealed a 2.3 x 2.6 cm hyperechoic lipoma at 2:00. Follow-up diagnostic mammogram of the right breast in 6 months was recommended. She has done well since that time. She is not complaining of any new lumps masses or nodules of concern in either breast. On 3121 she underwent a right breast diagnostic mammogram which was benign BIRADS 2. She also underwent an ultrasound of the right breast on the same day which revealed a 1.8 x 2.5 cm hyperechoic lesion at 2:00 believed to be a benign lipoma. This again was believed to be benign BIRADS 2 and routine screening of both breasts in 4 months was recommended. caffeine: 2-3 cups of coffee/day nicotine: 1PPD/ for 40 years chocolate: occasional Family History: maternal grandmother: colon cancer Hormonal History: menarche: 11 [id number] breast fed: no, age at first : 20 menopause: hysterectomy ? if ovaries removed, at 41; done for bleeding BCP: 10 years hormones: < 1 year Surgical history: hysterectomy question of ovaries removed gallbladder Medical History: bilateral shoulder pain Social History: nicotine: 1/PPD for 40 years alcohol: rare drugs: none - Constitutional Constitutional: Denies chills, Denies fever - EENT Eyes: denies blurred vision, denies pain Ears: bilateral: tinnitus Ears, nose, mouth and throat: Denies headache, Denies sore throat - Breasts Breasts: bilateral: as per HPI - Cardiovascular Cardiovascular: Denies chest pain, Denies shortness of breath - Respiratory Comment: smoker - Gastrointestinal Gastrointestinal: Reports constipation, Denies abdominal pain, Denies diarrhea, Denies nausea, Denies vomiting - Genitourinary (Female) Genitourinary: Denies dysuria, Denies hematuria - Menstruation Menstruation: Reports post hysterectomy - Musculoskeletal Comment: arthritis Musculoskeletal: Reports as per HPI - Integumentary Integumentary: Reports as per HPI - Neurological Neurological: Reports weakness, Denies numbness - Psychiatric Psychiatric: Reports anxiety, Reports depression - Endocrine Comment: diabetic - Hematologic/Lymphatic Comment: baby aspirin daily - Allergic/Immunologic Allergic/Immunologic: Reports as per HPI Past Medical History Past Medical History: Diabetes Mellitus Additional Past Medical History / Comment(s): GALLBLADDER DISORDERS History of Any Multi-Drug Resistant Organisms: None Reported Past Surgical History: Hysterectomy Additional Past Surgical History / Comment(s): COLONOSCOPY. BILAT BREAST BIOPSIES-BENIGN Past Anesthesia/Blood Transfusion Reactions: Previous Problems w/ Anesthesia Additional Past Anesthesia/Blood Transfusion Reaction / Comment(s): WOKE UP DURING COLONOSCOPY Past Psychological History: Anxiety Additional Psychological History / Comment(s): LIVES WITH ALCOHOLIC-GETS ANXIETY ATTACKS AT TIMES Smoking Status: Smoker, current status unknown Past Alcohol Use History: Rare Additional Past Alcohol Use History / Comment(s): SMOKES 1 PPD SINCE AGE 15 Past Drug Use History: None Reported - Past Family History Mother Family Medical History: No Reported History Medications and Allergies Home Medications Medication Instructions Recorded Confirmed Type Albuterol Inhaler (Mhu) [Ventolin 1 - 2 puff INHALATION Q6HR 10/04/17 09/08/21 History Hfa Inhaler] Ascorbic Acid [Vitamin C] 500 mg PO BID 10/04/17 09/08/21 History Aspirin EC [Ecotrin Low Dose] 81 mg PO HS 10/04/17 09/08/21 History Cyanocobalamin (Vitamin B-12) 1,000 mcg PO DAILY 10/04/17 09/08/21 History [Vitamin B-12] Furosemide [Lasix] 10 mg PO DAILY 10/04/17 09/08/21 History [place]-3 Fatty Acids/Fish Oil [Fish 1 each PO DAILY 10/04/17 09/08/21 History Oil 1,000 mg Softgel] Levothyroxine Sodium [Synthroid] 75 mcg PO DAILY 02/03/21 09/08/21 History Multivit with Calcium,Iron,Min 1 each PO DAILY 02/03/21 09/08/21 History [Women's Multivitamin] Zinc 50 mg PO DAILY 02/03/21 09/08/21 History sitaGLIPtin PHOS/metFORMIN HCL 1 each PO BID 02/03/21 09/08/21 History [Janumet 50-1,000 mg Tablet] Ipratropium Nebulized [Atrovent 2.5 ml NASAL DAILY 09/08/21 09/08/21 History Nebulized 0.2 MG/ML] Allergies Allergy/AdvReac Type Severity Reaction Status Date / Time amoxicillin [From Augmentin] AdvReac SEVERE Verified 09/08/21 15:04 SORE THROAT clavulanic acid AdvReac SEVERE Verified 09/08/21 15:04 [From Augmentin] SORE THROAT Surgical - Exam Vital Signs Temp Pulse Resp BP Pulse Ox 96.7 F L 91 18 126/83 96 09/08/21 15:08 09/08/21 15:08 09/08/21 15:08 09/08/21 15:08 09/08/21 15:08 BMI 34.1 - General no distress - Eyes normal ocular movement - Neck trachea midline - Respiratory normal respiratory effort, clear to auscultation - Cardiovascular Rhythm: regular Heart Sounds: normal: S1, S2 - Abdomen Abdomen: soft - Integumentary normal turgor - Musculoskeletal normal gait, normal posture - Psychiatric oriented to time, oriented to person, oriented to place, speech is normal, memory intact Breast Exam: BRA: sports BRA large inspection: Bilateral grade 3 ptosis, fungal infection under both breasts Palpation: Right breast: Multi-positional exam no dominant masses or nodules of concern Right axilla: No adenopathy of concern Left breast: Multi-positional exam fibrocystic changes or dominant masses or notches of concern Left axilla: No adenopathy of concern Results Mammogram and ultrasound results reviewed Assessment and Plan Assessment: Pressure: Bilateral fibrocystic breast changes Recent right breast mammogram and ultrasound stable 1.8 x 2.5 cm lesion at 2:00 suspect benign lipoma Bilateral fungal infection underneath the breast Plan: Repeat bilateral mammogram in 4 months with physician exam at that time Prescription for nystatin CC: Dr. Sandip Lorenzo
== END ==
LOC: WWCWWP 14:44
PROVIDERS: ATTEND Surgery
DX: N60.11 Diffuse cystic mastopathy of right breast (principal); N60.12 Diffuse cystic mastopathy of left breast; B36.8 Other specified superficial mycoses; F17.210 Nicotine dependence, cigarettes, uncomplicated; Z88.1 Allergy status to other antibiotic agents

== ENCOUNTER → 2022-01-18 | Outpatient (CLI) | payer OTHER ==
--- NOTE | 2022-01-19 08:26 | MM ---
Reason for Exam: Screening (asymptomatic). Last mammogram was performed 1 year(s) and 1 month(s) ago. Patient History: Menarche at age 11. First Full-Term at age 21. Left ovary removed at age 40. Right ovary removed at age 40. Hysterectomy at age 40. Postmenopausal. Estrogen for 9 months from age 40 until age 40. 05/23/2007, Benign Core Biopsy on the left side. Risk Values: [place] 5 year model risk: 1.4%. NCI Lifetime model risk: 8.1%. Prior Study Comparison: 07/29/2019 Screening Mammogram, Unknown. 12/22/2020 Screening Mammogram, Unknown. 09/05/2021 Right Diagnostic Mammogram, [facility]. Tissue Density: There are scattered fibroglandular densities. Findings: Analyzed By CAD. Biopsy clips are seen bilaterally. There is no suspicious group of microcalcifications or new suspicious mass in either breast. Overall Assessment: Negative, BI-RAD 1 Management: Screening Mammogram of both breasts in 1 year. A clinical breast exam by your physician is recommended on an annual basis and results should be correlated with mammographic findings. Electronically signed and approved by: Israel Escobar DO
== END | disposition home or self-care (01) ==
LOC: RADMAMWWP 13:32
PROVIDERS: ATTEND Surgery
DX: Z12.31 Encounter for screening mammogram for malignant neoplasm of breast (principal); Z78.0 Asymptomatic menopausal state
CPT/HCPCS: 77063; 77067

== ENCOUNTER → 2022-01-26 | Outpatient (CLI) | payer OTHER ==
[2022-01-26 16:39] VITALS: BP 125/77; PULSE 93; RESP 18; TEMP 97.9
--- NOTE | 2022-01-26 16:43 | P.PN ---
Subjective Progress Note Date: 01/26/22 Principal diagnosis: fibrocystic breast changes Mary is a 56-year-old white female who presents for consultation for Dr. Sandip Lorenzo on 02-03-21 regarding a right breast lump. She underwent a bilateral screening mammogram on . This did not show any suspicious lesions of concern. An ultrasound of the palpable abnormality was recommended. She noted a lump in her right breast in the inner aspect for about 6 months. She can't feel it at this time, she did not have an ultrasound performed yet. She is not complaining of any pain in her breast. She has not had any recent nipple discharge. She is not complaining of any recent trauma or infection in the breast. She did notice an area of erythema in the more lateral aspect of the breast about two days ago. She's had bilateral percutaneous breast biopsies. These were both benign[place] [address] had an ultrasound of her right breast which revealed a 2.3 x 2.6 cm hyperechoic lipoma at 2:00. Follow-up diagnostic mammogram of the right breast in 6 months was recommended. She has done well since that time. She is not complaining of any new lumps masses or nodules of concern in either breast. On 3121 she underwent a right breast diagnostic mammogram which was benign BIRADS 2. She also underwent an ultrasound of the right breast on the same day which revealed a 1.8 x 2.5 cm hyperechoic lesion at 2:00 believed to be a benign lipoma. This again was believed to be benign BIRADS 2 and routine screening of both breasts in 4 months was recommended. 01-18-22 Bilateral mammogram done benign BIRADS 1 She is complaining of a lump in her right chest wall after doing garden work. The lesion on her chest she has never noted in the past. She is not complaining of any lumps masses or nodules in either breast. She does have a history of sebaceous cysts and lipomas. caffeine: 2-3 cups of coffee/day nicotine: 1PPD/ for 40 years chocolate: occasional Family History: maternal grandmother: colon cancer Hormonal History: menarche: 11 [id number] breast fed: no, age at first : 20 menopause: hysterectomy ? if ovaries removed, at 41; done for bleeding BCP: 10 years hormones: < 1 year Surgical history: hysterectomy question of ovaries removed gallbladder Medical History: bilateral shoulder pain Social History: nicotine: 1/PPD for 40 years alcohol: rare drugs: none - Constitutional Constitutional: Denies chills, Denies fever - EENT Eyes: denies blurred vision, denies pain Ears: bilateral: tinnitus Ears, nose, mouth and throat: Denies headache, Denies sore throat - Breasts Breasts: bilateral: as per HPI - Cardiovascular Cardiovascular: Denies chest pain, Denies shortness of breath - Respiratory Comment: smoker - Gastrointestinal Gastrointestinal: Reports constipation, Denies abdominal pain, Denies diarrhea, Denies nausea, Denies vomiting - Genitourinary (Female) Genitourinary: Denies dysuria, Denies hematuria - Menstruation Menstruation: Reports post hysterectomy - Musculoskeletal Comment: arthritis Musculoskeletal: Reports as per HPI - Integumentary Integumentary: Reports as per HPI - Neurological Neurological: Reports weakness, Denies numbness - Psychiatric Psychiatric: Reports anxiety, Reports depression - Endocrine Comment: diabetic - Hematologic/Lymphatic Comment: baby aspirin daily - Allergic/Immunologic Allergic/Immunologic: Reports as per HPI Objective - Constitutional General appearance: Present: cooperative - EENT Eyes: Present: EOMI ENT: Present: hearing grossly normal - Neck Neck: Present: normal ROM - Respiratory Respiratory: bilateral: CTA - Cardiovascular Heart sounds: normal: S1, S2 - Integumentary Integumentary Comment(s): Small approximately 8 mm subcutaneous swelling on the anterior chest wall on the right side most likely consistent with a sebaceous cyst. At this time it is not bothering the patient. Integumentary: Present: normal turgor - Musculoskeletal Musculoskeletal: Present: gait normal - Psychiatric Psychiatric: Present: A&O x's 3, appropriate affect, intact judgment & insight - Additional findings Additional findings: Breast examination: Prior: Large sports brought Inspection: Bilateral grade 3 ptosis, Palpation: Right breast: Multi-positional exam no dominant masses or nodules of concern Right axilla: No adenopathy of concern Left breast: Multiple positional exam fibrocystic changes no dominant masses or nodules of concern Left axilla: No adenopathy of concern Mammogram results reviewed Assessment and Plan Assessment: Impression: Bilateral fibrocystic breast changes Bilateral mammogram 6622 benign BIRADS 1 Plan: Bilateral mammogram in 1 year with physician exam at that time Follow-up in March to reevaluate the soft tissue swelling which is believed to be most likely a sebaceous cyst/if this is persistent we may consider excision If this area gets larger she will follow up sooner CC: Dr. Sandip Lorenzo
== END ==
LOC: WWCWWP 16:26
PROVIDERS: ATTEND Surgery
DX: N60.11 Diffuse cystic mastopathy of right breast (principal); N60.12 Diffuse cystic mastopathy of left breast; F17.210 Nicotine dependence, cigarettes, uncomplicated; Z88.1 Allergy status to other antibiotic agents

== ENCOUNTER → 2022-05-17 | Outpatient (CLI) | payer OTHER ==
[2022-05-17 13:20] VITALS: BP 106/73; PULSE 102; RESP 16; TEMP 97.8
--- NOTE | 2022-05-17 13:31 | P.PN ---
Subjective Progress Note Date: 05/17/22 Principal diagnosis: Sebaceous cyst chest wall Bilateral mammogram done 11544 benign BIRADS 1 She is complaining of a lump in her right chest wall after doing garden work. The lesion on her chest she has never noted in the past. She is not complaining of any lumps masses or nodules in either breast. She does have a history of sebaceous cysts and lipomas. It is not bothering her at this time. caffeine: 2-3 cups of coffee/day nicotine: 1PPD/ for 40 years chocolate: occasional Family History: maternal grandmother: colon cancer Hormonal History: menarche: 11 [id number] breast fed: no, age at first : 20 menopause: hysterectomy ? if ovaries removed, at 41; done for bleeding BCP: 10 years hormones: < 1 year Surgical history: hysterectomy question of ovaries removed gallbladder Medical History: bilateral shoulder pain Social History: nicotine: 1/PPD for 40 years alcohol: rare drugs: none Objective - Vital Signs Vital signs: Vital Signs Temp 97.8 F 05/17/22 13:16 Pulse 102 H 05/17/22 13:16 Resp 16 05/17/22 13:16 BP 106/73 05/17/22 13:16 Pulse Ox 95 05/17/22 13:16 FiO2 Intake & Output 05/16/22 05/17/22 05/17/22 18:59 06:59 18:59 Weight 90.718 kg - Constitutional General appearance: Present: cooperative - EENT Eyes: Present: EOMI ENT: Present: hearing grossly normal - Neck Neck: Present: normal ROM - Respiratory Respiratory: bilateral: CTA - Cardiovascular Rhythm: regular Heart sounds: normal: S1, S2 - Gastrointestinal General gastrointestinal: Present: soft - Integumentary Integumentary: Present: normal turgor - Musculoskeletal Musculoskeletal: Present: gait normal - Psychiatric Psychiatric: Present: A&O x's 3, appropriate affect, intact judgment & insight - Additional findings Additional findings: Breast Exam: BRA: sports bra large impression: bilateral grade 2 ptosis Palpation: Right breast: Multi-positional exam fibrocystic changes no discrete dominant masses or nodules of concern in the parenchyma of the breast, there is approximately a 1-1/2 cm probable sebaceous cyst in the upper inner quadrant area of the breast towards the chest wall Right axilla: No adenopathy of concern Left breast: Multi-positional exam fibrocystic changes no discrete dominant mass or nodule is of concern in the parenchyma of the breast Left axilla: No adenopathy of concern Assessment and Plan Assessment: Impression: Soft tissue mass right breast/chest wall; probable sebaceous cyst Plan: Excision of sebaceous cyst in the operating room
== END | disposition home or self-care (01) ==
LOC: WWCWWP 13:07
PROVIDERS: ATTEND Surgery
DX: Z53.9 Procedure and treatment not carried out, unspecified reason (principal)

== ENCOUNTER → 2023-01-21 | Outpatient (CLI) | payer OTHER ==
--- NOTE | 2023-01-22 07:56 | MM ---
Reason for Exam: Screening (asymptomatic). Last screening mammogram was performed 12 month(s) ago. Patient History: Menarche at age 11. First Full-Term at age 21. Left ovary removed at age 40. Right ovary removed at age 40. Hysterectomy at age 40. Postmenopausal. Estrogen for 9 months from age 40 until age 40. 05/23/2007, Benign Core Biopsy on the left side. Risk Values: Amaris 5 year model risk: 1.5%. NCI Lifetime model risk: 7.9%. Prior Study Comparison: 12/22/2020 Screening Mammogram, Unknown. 09/05/2021 Right Diagnostic Mammogram, [facility]. 01/18/2022 Bilateral MG 3D screening mammo w/cad, [facility]. Tissue Density: There are scattered fibroglandular densities. Findings: Analyzed By CAD. Pattern appears symmetrical stable. No significant interval change is evident. Core markers are within the bilateral breasts. Scar marker is utilized right breast. No suspicious groups of microcalcifications, spiculated or lobular masses, architectural distortion or other secondary signs of malignancy are mammographically apparent. Overall Assessment: Benign, BI-RAD 2 Management: Screening Mammogram of both breasts in 1 year. A negative mammogram report should not preclude additional follow up of suspicious palpable abnormalities. Patient should continue monthly self breast exam. A clinical breast exam by your physician is recommended on an annual basis and results should be correlated with mammographic findings. Electronically signed and approved by: Matthew Estevez D.O. Radiologis
== END | disposition home or self-care (01) ==
LOC: RADMAMWWP 10:25
PROVIDERS: ATTEND Surgery
DX: Z12.31 Encounter for screening mammogram for malignant neoplasm of breast (principal); Z78.0 Asymptomatic menopausal state
CPT/HCPCS: 77063; 77067

== ENCOUNTER → 2023-08-13 | Outpatient (CLI) | payer OTHER | LOC: CPPFTMAIN 16:56 | PROVIDERS: ATTEND Family Medicine | DX: J45.909 Unspecified asthma, uncomplicated (principal); F17.200 Nicotine dependence, unspecified, uncomplicated; Z79.899 Other long term (current) drug therapy; Z88.8 Allergy status to other drugs, medicaments and biological substances; Z79.82 Long term (current) use of aspirin | CPT/HCPCS: 94060; 94726; 94729 ==

== ENCOUNTER → 2024-01-23 | Outpatient (CLI) | payer OTHER ==
--- NOTE | 2024-01-26 11:54 | MM ---
Reason for Exam: Screening (asymptomatic). Last screening mammogram was performed 12 month(s) ago. Patient History: Menarche at age 11. First Full-Term at age 21. Left ovary removed at age 40. Right ovary removed at age 40. Hysterectomy at age 40. Postmenopausal. Estrogen for 9 months from age 40 until age 40. 05/23/2007, Benign Core Biopsy on the left side. Risk Values: Amaris 5 year model risk: 1.5%. NCI Lifetime model risk: 7.7%. Prior Study Comparison: 09/05/2021 Right Diagnostic Mammogram, [facility]. 01/18/2022 Bilateral MG 3D screening mammo w/cad, [facility]. 01/21/2023 Bilateral MG 3D screening mammo w/cad, [facility]. Tissue Density: There are scattered areas of fibroglandular density. Findings: Analyzed By CAD. The pattern is symmetrical. Core markers are present within the bilateral breasts. Benign calcification is within the left breast. Few scattered punctate calcifications are within the right breast. No suspicious groups of microcalcifications, spiculated or lobular masses, architectural distortion or other secondary signs of malignancy are mammographically apparent. Overall Assessment: Benign, BI-RAD 2 Management: Screening Mammogram of both breasts in 1 year. A negative mammogram report should not preclude additional follow up of suspicious palpable abnormalities. Patient should continue monthly self breast exam. A clinical breast exam by your physician is recommended on an annual basis and results should be correlated with mammographic findings. Note on Amaris scores and lifetime risk: 1. A Amaris score greater than 3% is considered moderate risk. If this is the case, consider specialist referral to assess eligibility for a risk reducing agent. 2. If overall lifetime risk for the development of breast cancer is 20% or higher, the patient may qualify for future screening with alternating mammogram and breast MRI. Electronically signed and approved by: Matthew Estevez D.O. Radiologis
== END | disposition home or self-care (01) ==
LOC: RADMAMWWP 09:10
PROVIDERS: ATTEND Surgery
DX: Z12.31 Encounter for screening mammogram for malignant neoplasm of breast (principal); R92.323 Mammographic fibroglandular density, bilateral breasts; Z78.0 Asymptomatic menopausal state
CPT/HCPCS: 77067

== ENCOUNTER → 2024-01-30 | Outpatient (CLI) | payer OTHER ==
[2024-01-30 10:22] VITALS: BP 114/74; PULSE 74; RESP 17; TEMP 98.4
--- NOTE | 2024-01-30 10:53 | P.PN ---
Subjective Progress Note Date: 01/30/24 Principal diagnosis: fibrocystic breast disease Principal diagnosis: new diagnosis of a nipple pustule with discharge Nicolle is a 59 year old white female with a history of fibrocystic breast disease. She had a lipoma removed from the right breast on 09-04-22. A bilateral mammogram on 01-23-24 was BIRAD 2. This was personally interpreted. She is not complaining of any new lumps masses or nodules of concern in either breast. She does bring to my attention a pustule on the right nipple which is elevated and drains through the nipple central portion separate from the area of the pustule. She is not complaining of any fever or chills. Amaris Risk: 5 year: 1.5% lifetime risk: 7.7% caffeine: 2-3 cups of coffee/day nicotine: 1PPD/ for 40 years chocolate: occasional Family History: maternal grandmother: colon cancer Hormonal History: menarche: 11 [id number] breast fed: no, age at first : 20 menopause: hysterectomy ? if ovaries removed, at 41; done for bleeding BCP: 10 years hormones: < 1 year Surgical history: hysterectomy question of ovaries removed gallbladder Medical History: bilateral shoulder pain Social History: nicotine: 1/PPD for 40 years alcohol: rare drugs: none - Constitutional Constitutional: Denies chills, Denies fever - EENT Eyes: denies blurred vision, denies pain Ears: bilateral: tinnitus Ears, nose, mouth and throat: Denies headache, Denies sore throat - Breasts Breasts: bilateral: as per HPI - Cardiovascular Cardiovascular: Denies chest pain, Denies shortness of breath - Respiratory Comment: smoker - Gastrointestinal Gastrointestinal: Reports constipation, Denies abdominal pain, Denies diarrhea, Denies nausea, Denies vomiting - Genitourinary (Female) Genitourinary: Denies dysuria, Denies hematuria - Menstruation Menstruation: Reports post hysterectomy - Musculoskeletal Comment: arthritis Musculoskeletal: Reports as per HPI - Integumentary Integumentary: Reports as per HPI - Neurological Neurological: Reports weakness, Denies numbness - Psychiatric Psychiatric: Reports anxiety, Reports depression - Endocrine Comment: diabetic - Hematologic/Lymphatic Comment: baby aspirin daily - Allergic/Immunologic Allergic/Immunologic: Reports as per HPI Past Medical History Past Medical History: Diabetes Mellitus Additional Past Medical History / Comment(s): GALLBLADDER DISORDERS History of Any Multi-Drug Resistant Organisms: None Reported Past Surgical History: Hysterectomy Additional Past Surgical History / Comment(s): COLONOSCOPY. BILAT BREAST BIOPSIES-BENIGN Past Anesthesia/Blood Transfusion Reactions: Previous Problems w/ Anesthesia Additional Past Anesthesia/Blood Transfusion Reaction / Comment(s): WOKE UP DURING COLONOSCOPY Past Psychological History: Anxiety Additional Psychological History / Comment(s): LIVES WITH ALCOHOLIC-GETS ANXIETY ATTACKS AT TIMES Smoking Status: Smoker, current status unknown Past Alcohol Use History: Rare Additional Past Alcohol Use History / Comment(s): SMOKES 1 PPD SINCE AGE 15 Past Drug Use History: None Reported - Past Family History Mother Family Medical History: No Reported History Medications and Allergies Home Medications Medication Instructions Recorded Confirmed Type Albuterol Inhaler (Mhu) [Ventolin 1 - 2 puff INHALATION Q6HR 10/04/17 09/08/21 History Hfa Inhaler] Ascorbic Acid [Vitamin C] 500 mg PO BID 10/04/17 09/08/21 History Aspirin EC [Ecotrin Low Dose] 81 mg PO HS 10/04/17 09/08/21 History Cyanocobalamin (Vitamin B-12) 1,000 mcg PO DAILY 10/04/17 09/08/21 History [Vitamin B-12] Furosemide [Lasix] 10 mg PO DAILY 10/04/17 09/08/21 History [place]-3 Fatty Acids/Fish Oil [Fish 1 each PO DAILY 10/04/17 09/08/21 History Oil 1,000 mg Softgel] Levothyroxine Sodium [Synthroid] 75 mcg PO DAILY 02/03/21 09/08/21 History Multivit with Calcium,Iron,Min 1 each PO DAILY 02/03/21 09/08/21 History [Women's Multivitamin] Zinc 50 mg PO DAILY 02/03/21 09/08/21 History sitaGLIPtin PHOS/metFORMIN HCL 1 each PO BID 02/03/21 09/08/21 History [Janumet 50-1,000 mg Tablet] Ipratropium Nebulized [Atrovent 2.5 ml NASAL DAILY 09/08/21 09/08/21 History Nebulized 0.2 MG/ML] Allergies Allergy/AdvReac Type Severity Reaction Status Date / Time amoxicillin [From Augmentin] AdvReac SEVERE Verified 09/08/21 15:04 SORE THROAT clavulanic acid AdvReac SEVERE Verified 09/08/21 15:04 [From Augmentin] SORE THROAT Objective - Vital Signs Vital signs: Vital Signs Temp 98.4 F 01/30/24 10:20 Pulse 74 01/30/24 10:20 Resp 17 01/30/24 10:20 BP 114/74 01/30/24 10:20 Pulse Ox 97 01/30/24 10:20 FiO2 Intake & Output 01/29/24 01/30/24 01/30/24 18:59 06:59 18:59 Weight 87.09 kg - Constitutional General appearance: Present: cooperative - EENT Eyes: Present: EOMI ENT: Present: hearing grossly normal - Neck Neck: Present: normal ROM - Respiratory Respiratory: bilateral: CTA - Cardiovascular Rhythm: regular Heart sounds: normal: S1, S2 - Integumentary Integumentary: Present: normal turgor - Musculoskeletal Musculoskeletal: Present: gait normal - Psychiatric Psychiatric: Present: A&O x's 3, appropriate affect, intact judgment & insight - Additional findings Additional findings: Breast Exam: BRA: sports BRA large inspection: Bilateral grade 3 ptosis; right nipple pustule Palpation: Right breast: Multi-positional exam no dominant masses or nodules of concern; pustule right nipple with evaluation there is some drainage from the central portion of the nipple Right axilla: No adenopathy of concern Left breast: Multi-positional exam fibrocystic changes or dominant masses or nodules of concern Left axilla: No adenopathy of concern Assessment and Plan Assessment: Impression: fibrocystic breast changes Pustule right nipple Plan: Cultures obtained from the drainage site of pustule right nipple Incision and drainage in the operating room of the pustulous site repeat bilateral mammogram in 1 year with appointment at that time Benefits of the procedure discussed with the patient. Risk include but are not limited to bleeding, infection, reaction to the anesthetic. The patient also understands that this will most likely be left open and that it would heal with secondary intent. Additionally the lesion could recur. The patient understands and wishes to proceed. CC: DR. Sandip Lorenzo
== END ==
LOC: WWCWWP 09:43
PROVIDERS: ATTEND Surgery
DX: N60.12 Diffuse cystic mastopathy of left breast (principal); N61.1 Abscess of the breast and nipple; F17.210 Nicotine dependence, cigarettes, uncomplicated; Z88.1 Allergy status to other antibiotic agents
CPT/HCPCS: 87070; 87075; 87205

== ENCOUNTER → 2024-03-12 | Outpatient (CLI) | payer OTHER ==
[2024-03-12 13:38] VITALS: BP 114/61; PULSE 80; RESP 17; TEMP 97.5
--- NOTE | 2024-03-12 13:48 | P.PN ---
Subjective Progress Note Date: 03/12/24 Principal diagnosis: pustule right nipple 03/12/24 Principal diagnosis: fibrocystic breast disease Principal diagnosis: new diagnosis of a nipple pustule with discharge Nicolle is a 59 year old white female with a history of fibrocystic breast disease. She had a lipoma removed from the right breast on 09-04-22. A bilateral mammogram on 01-23-24 was BIRAD 2. This was personally interpreted. She is not complaining of any new lumps masses or nodules of concern in either breast. She does bring to my attention a pustule on the right nipple which is elevated and drains through the nipple central portion separate from the area of the pustule. She is not complaining of any fever or chills. Cultures obtained on 02-03-24 no growth Amaris Risk: 5 year: 1.5% lifetime risk: 7.7% caffeine: 2-3 cups of coffee/day nicotine: 1PPD/ for 40 years chocolate: occasional Family History: maternal grandmother: colon cancer Hormonal History: menarche: 11 [id number] breast fed: no, age at first : 20 menopause: hysterectomy ? if ovaries removed, at 41; done for bleeding BCP: 10 years hormones: < 1 year Surgical history: hysterectomy question of ovaries removed gallbladder Medical History: bilateral shoulder pain Social History: nicotine: 1/PPD for 40 years alcohol: rare drugs: none - Constitutional Constitutional: Denies chills, Denies fever - EENT Eyes: denies blurred vision, denies pain Ears: bilateral: tinnitus Ears, nose, mouth and throat: Denies headache, Denies sore throat - Breasts Breasts: bilateral: as per HPI - Cardiovascular Cardiovascular: Denies chest pain, Denies shortness of breath - Respiratory Comment: smoker - Gastrointestinal Gastrointestinal: Reports constipation, Denies abdominal pain, Denies diarrhea, Denies nausea, Denies vomiting - Genitourinary (Female) Genitourinary: Denies dysuria, Denies hematuria - Menstruation Menstruation: Reports post hysterectomy - Musculoskeletal Comment: arthritis Musculoskeletal: Reports as per HPI - Integumentary Integumentary: Reports as per HPI - Neurological Neurological: Reports weakness, Denies numbness - Psychiatric Psychiatric: Reports anxiety, Reports depression - Endocrine Comment: diabetic - Hematologic/Lymphatic Comment: baby aspirin daily - Allergic/Immunologic Allergic/Immunologic: Reports as per HPI Past Medical History Past Medical History: Diabetes Mellitus Additional Past Medical History / Comment(s): GALLBLADDER DISORDERS History of Any Multi-Drug Resistant Organisms: None Reported Past Surgical History: Hysterectomy Additional Past Surgical History / Comment(s): COLONOSCOPY. BILAT BREAST BIOPSIES-BENIGN Past Anesthesia/Blood Transfusion Reactions: Previous Problems w/ Anesthesia Additional Past Anesthesia/Blood Transfusion Reaction / Comment(s): WOKE UP DURING COLONOSCOPY Past Psychological History: Anxiety Additional Psychological History / Comment(s): LIVES WITH ALCOHOLIC-GETS ANXIETY ATTACKS AT TIMES Smoking Status: Smoker, current status unknown Past Alcohol Use History: Rare Additional Past Alcohol Use History / Comment(s): SMOKES 1 PPD SINCE AGE 15 Past Drug Use History: None Reported - Past Family History Mother Family Medical History: No Reported History Medications and Allergies Home Medications Medication Instructions Recorded Confirmed Type Albuterol Inhaler (Mhu) [Ventolin 1 - 2 puff INHALATION Q6HR 10/04/17 09/08/21 History Hfa Inhaler] Ascorbic Acid [Vitamin C] 500 mg PO BID 10/04/17 09/08/21 History Aspirin EC [Ecotrin Low Dose] 81 mg PO HS 10/04/17 09/08/21 History Cyanocobalamin (Vitamin B-12) 1,000 mcg PO DAILY 10/04/17 09/08/21 History [Vitamin B-12] Furosemide [Lasix] 10 mg PO DAILY 10/04/17 09/08/21 History [place]-3 Fatty Acids/Fish Oil [Fish 1 each PO DAILY 10/04/17 09/08/21 History Oil 1,000 mg Softgel] Levothyroxine Sodium [Synthroid] 75 mcg PO DAILY 02/03/21 09/08/21 History Multivit with Calcium,Iron,Min 1 each PO DAILY 02/03/21 09/08/21 History [Women's Multivitamin] Zinc 50 mg PO DAILY 02/03/21 09/08/21 History sitaGLIPtin PHOS/metFORMIN HCL 1 each PO BID 02/03/21 09/08/21 History [Janumet 50-1,000 mg Tablet] Ipratropium Nebulized [Atrovent 2.5 ml NASAL DAILY 09/08/21 09/08/21 History Nebulized 0.2 MG/ML] Allergies Allergy/AdvReac Type Severity Reaction Status Date / Time amoxicillin [From Augmentin] AdvReac SEVERE Verified 09/08/21 15:04 SORE THROAT clavulanic acid AdvReac SEVERE Verified 09/08/21 15:04 [From Augmentin] SORE THROAT Objective - Vital Signs Vital signs: Vital Signs Temp 97.5 F L 03/12/24 13:35 Pulse 80 03/12/24 13:35 Resp 17 03/12/24 13:35 BP 114/61 03/12/24 13:35 Pulse Ox 96 03/12/24 13:35 FiO2 Intake & Output 03/11/24 03/12/24 03/12/24 18:59 06:59 18:59 Weight 89.358 kg - Constitutional General appearance: Present: cooperative - EENT Eyes: Present: EOMI ENT: Present: hearing grossly normal - Neck Neck: Present: normal ROM - Respiratory Respiratory: bilateral: CTA - Cardiovascular Heart sounds: normal: S1, S2 - Gastrointestinal General gastrointestinal: Present: soft - Integumentary Integumentary: Present: normal turgor - Musculoskeletal Musculoskeletal: Present: gait normal - Psychiatric Psychiatric: Present: A&O x's 3, appropriate affect, intact judgment & insight - Additional findings Additional findings: reast Exam: BRA: sports BRA large inspection: Bilateral grade 3 ptosis; right nipple pustule Palpation: Right breast: Multi-positional exam no dominant masses or nodules of concern; pustule right nipple with evaluation there is some drainage from the central portion of the nipple Right axilla: No adenopathy of concern Left breast: Multi-positional exam fibrocystic changes or dominant masses or nodules of concern Left axilla: No adenopathy of concern Assessment and Plan Assessment: Impression: fibrocystic breast changes Pustule right nipple Plan: Incision and drainage in the operating room of the pustulous site repeat bilateral mammogram in 1 year with appointment at that time Benefits of the procedure discussed with the patient. Risk include but are not limited to bleeding, infection, reaction to the anesthetic. The patient also understands that this will most likely be left open and that it would heal with secondary intent. Additionally the lesion could recur. The patient understands and wishes to proceed. CC: DR. Sandip Lorenzo
== END ==
LOC: WWCWWP 12:40
PROVIDERS: ATTEND Surgery
DX: N61.1 Abscess of the breast and nipple (principal); L08.9 Local infection of the skin and subcutaneous tissue, unspecified; N60.11 Diffuse cystic mastopathy of right breast; F17.210 Nicotine dependence, cigarettes, uncomplicated; Z88.0 Allergy status to penicillin; Z88.8 Allergy status to other drugs, medicaments and biological substances